=== PATIENT | male | born 1935 | race Caucasian/White ===

== ENCOUNTER 2016-11-07 15:19 | Emergency (ER) | payer MEDICARE ==
[~2016-11-07 15:19] MED LIST: CALCIUM CHLORIDE 100 MG/ML 10 ML SYRINGE ONE; EPINEPHrine 10 ML SYRINGE (0.1 MG/ML) ONE; ETOMIDATE 2 MG/ML 10 ML VIAL ONE; SUCCINYLCHOLINE CHLORIDE 100 MG/5 ML SYR IV ONE
[2016-11-07] MEDS ORDERED: HEPARIN SODIUM,PORCINE 5,000 UNIT/ML 1 ML VIAL IV ONE (15:27)
[2016-11-07] MEDS ORDERED: HEPARIN SODIUM,PORCINE/D5W PMX 25,000 UNIT in DEXTROSE/WATER 1 500ML.BAG IV SCH (15:30)
[2016-11-07] MEDS ORDERED: RX INFO: IV CONTRAST WAS GIVEN 1 EACH MISC MISCELLANE PRN (15:34)
[2016-11-07 15:52] LABS: Glucose,Whole Blood 193 mg/dL (75-99)
[2016-11-07 15:57] LABS: Aty Lym Flag Slight; CH 30.2; CHCM 31.8; HCT 38.9 % (39.0-53.0); HDW 2.54; HGB 12.3 gm/dL (13.0-17.5); MCH 30.2 pg (25.0-35.0); MCHC 31.6 g/dL (31.0-37.0); MCV 95.5 fL (80.0-100.0); Mean Platelet Volume 7.8; RBC 4.07 m/uL (4.30-5.90); RDW 13.7 % (11.5-15.5); WBC 9.4 k/uL (3.8-10.6); WBC (Perox) 9.57
[2016-11-07 16:00] LABS: Add Differential Manual Differential; Potassium 3.8 mmol/L (3.5-5.1); Total Bilirubin 0.4 mg/dL (0.2-1.3); Total Protein 6.5 g/dL (6.3-8.2)
[2016-11-07 16:03] LABS: Manual Review Performed; Nucleated Red Blood Cells 0 /100 WBC (0-0); Total Cells Counted 100; Toxic Granulation Present
--- NOTE | 2016-11-07 16:05 | ED ---
Chest Pain HPI - General Stated Complaint: BRIAN Time Seen by Provider: 11/07/16 15:22 - History of Present Illness Initial Comments: Patient complains of acute onset difficulty in breathing. His symptoms have not been going on for very long. According to EMS, they were concern for STEMI based on her prehospital EKG. Patient denies any chest pain. He has no back pain. He has no belly pain. He has sweatiness. He has no lightheadedness or dizziness. He states that he is gasping for breath and is unable to take a deep breath. Review of Systems ROS Statement: Those systems with pertinent positive or pertinent negative responses have been documented in the HPI. ROS Other: All systems not noted in ROS Statement are negative. EKG Findings - EKG Comments: EKG Findings:: Twelve-lead EKG is obtained, interpreted by me showing ventricular rate 108 bpm, slightly prolonged NE interval, the QRS complexes demonstrate left anterior fascicular block and are widened. Interpreted by me as sinus tachycardia. General Exam Limitations: no limitations General appearance: alert Head exam: Present: atraumatic Eye exam: Present: normal appearance Pupils: Present: normal accommodation ENT exam: Present: normal exam Neck exam: Present: normal inspection Respiratory exam: Present: normal lung sounds bilaterally Cardiovascular Exam: Present: tachycardia GI/Abdominal exam: Present: soft. Absent: tenderness Extremities exam: Present: normal inspection Back exam: Present: normal inspection Neurological exam: Present: alert Psychiatric exam: Present: anxious Skin exam: Present: diaphoretic Chest [facility] Patient presented with acute onset difficulty in breathing. Based on the patient's prehospital EKG I did activate the STEMI pager. I wanted to start the patient on IV heparin, therefore obtained a 1 view portable chest x-ray to a valid for widened mediastinum. Looking at the chest x-ray the mediastinum does appear widened me, therefore I did not immediately order heparin. I did order CT of the chest to valid for dissection or pulmonary M Melendrez. However, shortly thereafter the patient lost his pulse. I intubated the patient using a 7.5 endotracheal tube. There were no complications of this procedure and bilateral breath sounds were auscultated on bagging postintubation. Patient was given multiple doses of epinephrine intravenously. Patient was coded for greater than 20 minutes. Despite our efforts, the patient did not regain a pulse and was pronounced . I did speak with the biomedical engineering aide, who released the body. Disposition Clinical Impression: Cardiac arrest Disposition: Condition: Serious Time of Disposition: 16:07 Preliminary Cause of : cardiac arrest
[2016-11-07 16:09] LABS: Prothrombin Time 10.6 sec (9.0-12.0)
[2016-11-07 16:21] LABS: Partial Thromboplastin Time 21.3 sec (22.0-30.0)
[2016-11-07 16:25] LABS: Creatine Kinase MB 2.2 ng/mL (0.0-2.4)
[2016-11-07 16:28] LABS: Troponin I 0.038 ng/mL (0.000-0.034)
--- NOTE | 2016-11-07 16:28 | XR ---
EXAMINATION TYPE: XR chest 1V portable DATE OF EXAM ORDERED: 11/07/2016 3:37 PM HISTORY: chest pain. COMPARISON: None. FINDINGS: The patient has taken extremely poor inspiration. There is some left basilar airspace dise ase. There is chronic apparent elevation of the right hemidiaphragm. Pleural space are clear. The hea rt is enlarged. IMPRESSION: 1. SUBOPTIMAL STUDY. 2. CARDIOMEGALY. 3. I SUSPECT LEFT BASILAR AIRSPACE DISEASE WHICH MAY REPRESENT ATELECTASIS OR PNEUMONIA.
== END 2016-11-07 19:21 | disposition expired ==
LOC: EC 15:19
DX: I46.9 Cardiac arrest, cause unspecified (principal)
CPT/HCPCS: 99285; 31500; 36415; 80053; 82550; 82553; 84484; 85025; 85610; 85730; 71010; J0171; J0330; 93005